=== PATIENT | male | born 1940 | race Caucasian/White ===

== ENCOUNTER → 2019-11-20 13:46 | Outpatient (CLI) | payer MEDICARE, BC, SELFPAY ==
--- NOTE | 2019-11-20 14:08 | US_ITS ---
PROCEDURE: US ABD. AORTA SCREENING CLINICAL INDICATION: ASCVD,ABD DISCOMFORT COMPARISON: No exams were available for comparison No exams were available for comparison FINDINGS: No evidence of abdominal aortic aneurysm. Proximal common iliacs have an unremarkable appearance. IMPRESSION: Negative for abdominal aortic aneurysm Dictated by: Ze Rod MD 11/20/2019 14:43 Electronically signed by Ze Rod MD in [place] 11/20/2019 14:43
== END ==
PROVIDERS: PCP Family Medicine; Visit Provider Family Medicine
DX: R10.9 Unspecified abdominal pain (principal)
CPT/HCPCS: 76705

== ENCOUNTER → 2019-12-31 09:33 | Outpatient (CLI) | payer MEDICARE, BC, SELFPAY ==
--- NOTE | 2019-12-31 09:36 | FL_ITS ---
PROCEDURE: FL UPPER GI W AIR CLINICAL INDICATION: DYSPEPSIA COMPARISON: No exams were available for comparison TECHNIQUE: FLUOROSCOPY TIME : Minute and 2 seconds FINDINGS: The esophagus, stomach, and duodenum have an unremarkable appearance.There is no evidence of hiatal hernia. No ulcer or mass evident. No mucosal abnormalities apparent. There is normal peristalsis. There is a small diverticulum projecting off the medial aspect of the 2nd portion of the duodenum. There are multiple jejunal diverticula of is well. Only the proximal and mid aspect of the jejunum was imaged. IMPRESSION: 1. No evidence of ulcer or mass, no evidence of hiatal hernia. 2. Small duodenal diverticulum 3. Extensive jejunal diverticulosis. The small bowel is not completely imaged. Dedicated small bowel series may provide further evaluation to better determine the degree small bowel diverticulosis Dictated by: Ze Rod MD 12/31/2019 12:56 Electronically signed by Ze Rod MD in [place] 12/31/2019 12:56
== END ==
PROVIDERS: PCP Family Medicine; Visit Provider Family Medicine
DX: R10.13 Epigastric pain (principal)
CPT/HCPCS: 74246

== ENCOUNTER → 2020-01-07 09:11 | Outpatient (CLI) | payer MEDICARE, BC, SELFPAY ==
--- NOTE | 2020-01-07 09:16 | US_ITS ---
PROCEDURE: US ABDOMEN LIMITED CLINICAL INDICATION: DYSPEPSIA COMPARISON: US ABD. AORTA SCREENING from 11/20/2019 FINDINGS: PANCREAS: Unremarkable. No obvious mass or abnormal fluid collection. No ductal dilatation LIVER: No focal liver lesions demonstrated. Homogeneous echogenicity. No intrahepatic biliary ductal dilatation evident. There is appropriate direction of blood flow within a non dilated portal vein RIGHT KIDNEY: Unremarkable. Normal size and echogenicity. No hydronephrosis GALLBLADDER: No gallstones, gallbladder wall thickening, pericholecystic fluid, or biliary dilatation. IMPRESSION: Unremarkable limited abdominal ultrasound as detailed above Dictated by: Ze Rod MD 01/07/2020 13:33 Electronically signed by Ze Rod MD in [place] 01/07/2020 13:33
--- NOTE | 2020-01-07 09:17 | FL_ITS ---
PROCEDURE: FL SMALL BOWEL FOLLOW THROUGH CLINICAL INDICATION: DIVERTICULOSIS COMPARISON: FL UPPER GI W AIR from 12/31/2019 FINDINGS: Briquette Molder exam shows contrast within the right aspect of the colon. There are degenerative changes of the lumbar spine. Small bowel is visualized in its entirety. Numerous diverticula are present within the jejunum. The small bowel diverticulosis appears to be limited to the jejunum as the than a small diverticulum projecting off of the 2nd portion of the duodenum. No intestinal obstruction. No mucosal abnormalities or mass is apparent. Terminal ileum has an unremarkable appearance. IMPRESSION: Diverticulosis of the jejunum and descending duodenum otherwise negative small bowel series Dictated by: Ze Rod MD 01/07/2020 12:52 Electronically signed by Ze Rod MD in [place] 01/07/2020 12:52
== END ==
PROVIDERS: PCP Family Medicine; Visit Provider Family Medicine
DX: R10.13 Epigastric pain (principal); K57.10 Diverticulosis of small intestine without perforation or abscess without bleeding
CPT/HCPCS: 74250; 76705

== ENCOUNTER 2020-05-02 20:25 | Emergency (ER) | payer MEDICARE, BC, SELFPAY ==
[2020-05-02 20:48] VITALS: BP 163/91; PULSE 67; RESP 21; O2SAT 100; BMI 31.4
--- NOTE | 2020-05-02 21:00 | HMH.EDUTC ---
[facility] [place] Clinical Impression: Abdominal pain Qualifiers: Abdominal location: unspecified location Qualified Code(s): R10.9 - Unspecified abdominal pain Disposition: Still a Patient Condition on Discharge: Fair Referrals: Mathew Romo MD [Primary Care Provider] - Medical Decision Making - Medical Records Medical records reviewed: No: I reviewed the patient's medical records. - Gerardo Inquiry Pt receiving controlled substance: No Vital Signs: 05/02/20 20:48 Pulse Rate [Left Brachial] 67 Respiratory Rate 21 Blood Pressure [Left Arm] 163/91 H Blood Pressure Mean [Left Arm] 115 Blood Pressure Source [Left Arm] Automatic Cuff Blood Pressure Position [Left Arm] Sitting 02 Sat by Pulse Oximetry 100 [facility] [place] HPI - General Stated complaint: BP, stomch pain Time Seen by Provider: 05/02/20 20:50 Mode of Arrival: Ambulatory Source of Information: Patient Limitations: No Limitations Description of Symptoms (Recalled from Triage Doc. by RN): PATIENT C/O WORSENING LOWER ABDOMINAL PAIN X 2 DAYS, DENIES ANY DIARRHEA OR VOMITING. STATES HE HAS A HISTORY OF DIVERTICULOSIS THAT PCP HAS BEEN TREATING WITH FIBER AND PROBIOTICS. LAST BM WAS APPROX 2 HOURS APARTMENT MAINTENANCE AND WAS HARD STOOL. PATIENT ALSO VOICES CONCERN ABOUT ELEVATED BLOOD PRESSURE AT HOME. HEENT Symptoms (Recalled from RN notes): No Resp Symptoms (Recalled from RN notes): No Skin Symptoms (Recalled from RN notes): No MS Symptoms (Recalled from RN notes): No Functional Status (Recalled from RN notes): WNL - History of Present Illness Provider Complaint: He states that he has had lower abdominal pain since yesterday. He rates it as a 5 or a 6. It is pretty much continious. Nothing that he can identify makes it better. Having a bowel movement did not help it. His appetite has been decreased all day. He denies any fever or chills. He has felt bad and fatigued all day. He denies any constipation or diarrhea. He denies any difficulty urinating or any dysuria or hematuria. - Related Data Home Medications Medication Instructions Recorded Confirmed simvastatin 40 mg tablet 40 mg PO HS 30 Days #30 tab 08/02/18 05/02/20 Aspirin [Aspirin 81mg chewable 81 mg PO DAILY 05/02/20 05/02/20 tab] Bifidobacterium Infantis [Align] 4 mg PO DAILY 05/02/20 05/02/20 Colchicine [Colcrys 0.6mg tablet] 1 tab PO DAILY 05/02/20 05/02/20 calcium polycarbophiL [FiberCon 625 mg PO DAILY 05/02/20 05/02/20 625mg tablet] Allergies Allergy/AdvReac Type Severity Reaction Status Date / Time No Known Allergies Allergy Verified 08/02/18 10:26 - Worker's Comp Is this a Worker's Comp case?: No H History - Hepatitis A Screen Drug use history?: No High risk sexual behaviors?: No History of sexually transmitted infection?: No Currently employed?: No Childcare worker?: No Do you have indoor plumbing?: Yes Do you have electricity?: Yes Attestation statement:: This patient has been screened for Hepatitis A risk factors. I have reviewed the patient's past medical history: Yes Medical History: Reports:: Atherosclerotic Heart Disease, Coronary Artery Disease, Cerebrovascular Accident, Myocardial Infarction Other Surgeries: Yes: Cardiac Catheterization, Cardiac Surgery, Open Heart Surgery Amputation: No Fractures: No - Social History Smoking Status: Never smoker Alcohol Intake: never Substance Use Type: denies use Occupational Status: other ROS Obtained: Yes All systems reviewed & no additional complaints - Constitutional Constitutional: Reports chills, Denies fever(s), Reports poor appetite, Reports malaise - Eyes Eyes: Denies eye discharge - ENT Ears, Nose, Mouth, and Throat: Denies sore throat - Cardiovascular Cardiovascular: Denies chest pain - Respiratory Respiratory: No chest congestion, No cough - Gastrointestinal Gastrointestingal: Reports: as per HPI Physical Exam - General General appearance: alert, in no apparent distress - Head H
--- NOTE | 2020-05-02 21:00 | PC.NURSE ---
PATIENT SENT TO ER PER KIM CARDONA APRN FOR FURTHER EVALUATION OF ABDOMINAL PAIN. REPORT GIVEN TO Carmen RIVERA RN
[2020-05-02 21:11] VITALS: BP 162/82; PULSE 60; RESP 17; O2SAT 98; BMI 33.5
--- NOTE | 2020-05-02 21:22 | CT_ITS ---
PROCEDURE: CT ABDOMEN PELVIS W CON CLINICAL INDICATION: belly pain Generalized abdominal pain COMPARISON: No exams were available for comparison TECHNIQUE: IV Contrast: 75ML OPTIRAY 350 Oral Contrast None Axial images obtained with sagittal and coronal reformats. All CT scans at the facility use one or more dose reduction, viz: automated exposure control, ma/kV adjustment per patient size (including targeted exams where dose is matched to indication, i.e. head), or iterative reconstruction technique. FINDINGS: LOWER THORAX: There are coronary artery calcifications noted. There has been a prior median sternotomy. ABDOMEN & PELVIS: The liver has an unremarkable appearance. There is a small in the region of gallbladder neck. Spleen, adrenal glands and pancreas have an unremarkable appearance. No renal or ureteral calculi. There is moderate atherosclerotic aortoiliac calcification with evidence of plaque erosion or short segment intramural dissection in the mid abdominal aortic segment age indeterminate. No evidence of retroperitoneal hemorrhage or periaortic inflammatory change. No intestinal obstruction or free air. Duodenal diverticulum is noted. No evidence of appendicitis or diverticulitis. There is a small umbilical hernia which contains. There are mild degenerative changes in the lumbar spine with levoscoliosis and multilevel osteophytosis. IMPRESSION: 1. Cholelithiasis 2. Short segment intramural dissection versus plaque erosion along the leftward wall the mid abdominal aorta age indeterminate. No evidence aortic rupture Dictated by: Ze Rod MD 05/03/2020 05:32 Ze Rod MD in [place] 05/03/2020 05:32
[2020-05-02 21:34] LABS: Chloride 102 mmol/L (98-107); Potassium 4.1 mmoL/L (3.5-5.1); Sodium 137 mmol/L (136-145)
[2020-05-02 21:37] LABS: Alanine Aminotransferase 26 U/L (12-78); Alkaline Phosphatase 50 U/L (38-126); Amylase 86 U/L (30-110); Anion Gap 10.1 mEq/L (5-15); Aspartate Amino Transferase 35 U/L (17-59); Bilirubin,Total 1.1 mg/dl (0.2-1.3); Blood Urea Nitrogen 7 mg/dl (9-20); Calcium 9.1 mg/dl (8.4-10.2); Carbon Dioxide 29 mmol/L (22.0-30.0); Creatinine Clearance Estimated 74 mL/min (50-200); Estimated Glomerular Filt Rate 82 ml/min (>60); GFR (African American) 99 ML/MIN (>60); Glucose 112 mg/dl (74-100); Lipase 215 U/L (23-300)
[2020-05-02 21:38] LABS: Albumin/Globulin Ratio 1.5 (1.1-1.8); Basophils % 0.3 % (0.1-2.0); Eosinophils # 0.1 K/mm3 (0.0-0.4); Eosinophils % 0.7 % (0.1-12.0); Globulin 2.7 g/dL (1.3-3.2); Hematocrit 45.1 % (42.0-52.0); Hemoglobin 15.7 g/dL (14.1-18.0); Lymphocytes # 1.7 K/mm3 (0.7-4.5); Lymphocytes % 21.6 % (10-50); Mean Corpuscular HGB Conc 34.8 g/dL (31.8-35.4); Mean Corpuscular Hemoglobin 30.4 pg (27.0-31.2); Mean Corpuscular Volume 87.1 fl (80-94); Mean Platelet Volume 7.5 fl (7.4-10.4); Monocytes # 0.5 K/mm3 (0.1-1.0); Monocytes % 6.8 % (1.7-9.3); Neutrophils # 5.6 K/mm3 (1.8-7.8); Neutrophils % 70.5 % (37.0-80.0); Platelet Count 166 K/mm3 (142-424); Red Blood Count 5.18 M/mm3 (4.60-6.20); Red Cell Distribution Width 13.2 % (11.5-17.5); Total Protein,Serum 6.7 g/dl (6.3-8.2); White Blood Count 7.9 K/mm3 (4.8-10.8)
[2020-05-02 21:45] LABS: Microscopic, Urine URINE MICROSCOPIC (MICROSCOPIC)
[2020-05-02 21:48] LABS: Appearance,Urine CLEAR (Clear); Bilirubin,Urine Negative (Negative); Blood, Urine Negative (Negative); Color,Urine YELLOW (Yellow); Glucose,Urine (UA) Negative (Negative); Ketones,Urine Negative (Negative); Leukocyte Esterase,Urine Negative (Negative); Nitrate,Urine Negative (Negative); PH,Urine 6.5 (5.0-8.5); Protein,Urine Negative (Negative); Specific Gravity, Urine <= 1.005 (1.005-1.030); Urobilinogen,Urine 0.2 EU/dl (0.2)
[2020-05-02 21:58] LABS: Bacteria,Urine Trace /lpf; WBC,Urine Occasional #/hpf (0-3)
[2020-05-02 22:00] VITALS: BP 155/66; PULSE 61; RESP 18; O2SAT 99
[2020-05-02 22:50] VITALS: BP 148/68; PULSE 63; RESP 17; O2SAT 99
--- NOTE | 2020-05-02 23:20 | HMH.EDNVD ---
ED Disposition Clinical Impression: Abdominal pain Qualifiers: Abdominal location: unspecified location Qualified Code(s): R10.9 - Unspecified abdominal pain Disposition: Home, Self-Care Condition on Discharge: Good Instructions: DI for Acute Abdomen Additional Instructions: call pcp in am for follow up Referrals: Mathew Romo MD [Primary Care Provider] - - Critical Care Critical Care Time: No Attestation: On 05/02/20, the high probability of a clinically significant, sudden or life threatening deterioration of the following system(s) required my full and direct attention, intervention and personal management. The time I documented below is in addition to time spent performing reported procedures but includes the following listed in this critical care notation. Medical Decision Making - Medical Records Medical records reviewed: Yes: I reviewed the patient's medical records. - Gerardo Inquiry Pt receiving controlled substance: No Vital Signs: 05/02/20 20:48 05/02/20 21:11 Pulse Rate [Left Brachial] 67 60 Respiratory Rate 21 17 Blood Pressure [Left Arm] 163/91 H 162/82 H Blood Pressure Mean [Left Arm] 115 108 Blood Pressure Source [Left Arm] Automatic Cuff Automatic Cuff Blood Pressure Position [Left Arm] Sitting Sitting 02 Sat by Pulse Oximetry 100 98 Oxygen Delivery Method Room Air - Lab Data Lab results reviewed: Yes: I reviewed the patient's lab results. Lab Results 05/02/20 21:10: Urine Color Yellow, Urine Appearance Clear, Urine pH 6.5, Ur Specific [place] <= 1.005, Urine Protein Negative, Urine Glucose (UA) Negative, Urine Ketones Negative, Urine Blood Negative, Urine Nitrate Negative, Urine Bilirubin Negative, Urine Urobilinogen 0.2, Ur Leukocyte Esterase Negative, Urine WBC Occasional, Urine Bacteria Trace 05/02/20 21:10: Lipase 215 05/02/20 21:10: WBC 7.9, RBC 5.18, Hgb 15.7, Hct 45.1, MCV 87.1, MCH 30.4, MCHC 34.8, RDW 13.2, Plt Count 166, MPV 7.5, Neut % (Auto) 70.5, Lymph % (Auto) 21.6, [place] % (Auto) 6.8, Eos % (Auto) 0.7, Baso % (Auto) 0.3, Neut # (Auto) 5.6, Lymph # (Auto) 1.7, Davie # (Auto) 0.5, Eos # (Auto) 0.1, Baso # (Auto) 0.0 05/02/20 21:10: Sodium 137, Potassium 4.1, Chloride 102, Carbon Dioxide 29, Anion Gap 10.1, BUN 7 L, Creatinine 0.90, Estimated Creat Clear 74, Estimated GFR 82, Est GFR ( Amer) 99, Glucose 112 H, Calcium 9.1, Total Bilirubin 1.1, AST 35, ALT 26, Alkaline Phosphatase 50, Total Protein 6.7, Albumin 4.0, Globulin 2.7, Albumin/Globulin Ratio 1.5, Amylase 86 Result diagrams: 05/02/20 21:10 05/02/20 21:10 Orders (Tests/Meds): ED MEDICATIONS Generic Name Dose Route Start Last Admin Trade Name Freq PRN Reason Stop Dose Admin Sodium Chloride 1,000 mls @ 999 mls/hr 05/02/20 21:30 05/02/20 22:12 Sod Chlor 0.9% 1000ml Bag IV 05/02/20 22:30 999 mls/hr .Q1H1M LADI Administration Sodium Chloride 8 ml 05/02/20 22:19 Sodium Chloride 0.9% 10ml Vial IV 06/01/20 22:18 NEEDED PRN dilute pepcid Discontinued Medications Generic Name Dose Route Start Last Admin Trade Name Freq PRN Reason Stop Dose Admin Famotidine 20 mg 05/02/20 22:19 05/02/20 22:20 Pepcid 20mg/2ml Vial IV 05/02/20 22:20 20 mg ONCE ONE Administration Ioversol 75 ml 05/02/20 22:16 05/02/20 22:17 Rad-Optiray 350 100ml Vial IV 05/02/20 22:17 75 ml ONCE ONE Administration Protocol Ketorolac Tromethamine 30 mg 05/02/20 22:09 Toradol 30mg/Ml Vial IV 05/02/20 22:10 ONCE ONE Metoclopramide HCl 10 mg 05/02/20 22:19 05/02/20 22:20 Reglan 10mg/2ml Vial IVP 05/02/20 22:20 10 mg ONCE ONE Administration Ondansetron HCl 4 mg 05/02/20 22:18 05/02/20 22:20 Zofran 4mg/2ml Vial IV 05/02/20 22:19 4 mg ONCE ONE Administration Sodium Chloride 10 ml 05/02/20 22:16 05/02/20 22:17 Rad-Saline Flush 10ml Syringe IV 05/02/20 22:17 10 ml ONCE ONE Administration ORDERS Category Date Time Status CT
[2020-05-02 23:25] VITALS: BP 145/60; PULSE 58; RESP 18; TEMP 36.8; O2SAT 98
== END 2020-05-02 23:31 | disposition home or self-care (01) ==
LOC: UTC 20:35 → ER 21:05
PROVIDERS: Emergency Provider Emergency Medicine; PCP Family Medicine
DX: R10.30 Lower abdominal pain, unspecified (principal); K57.90 Diverticulosis of intestine, part unspecified, without perforation or abscess without bleeding; E78.5 Hyperlipidemia, unspecified; I25.10 Atherosclerotic heart disease of native coronary artery without angina pectoris; I25.2 Old myocardial infarction; Z79.899 Other long term (current) drug therapy
CPT/HCPCS: 74177; 80053; 81001; 82150; 83690; 85025; 96365; 96375; 99283; J2405; Q9967

== ENCOUNTER → 2020-05-10 10:20 | Outpatient (CLI) | payer MEDICARE, BC, SELFPAY ==
--- NOTE | 2020-05-10 10:23 | CT_ITS ---
Procedure: CT ANGIO ABDOMEN CLINICAL HISTORY: DISSECTION OF ABN AORTA Mid to lower abdominal pain with nausea ?DISSECTION OF ABD AORTA 100ML OPTIRAY 350, 40ML SALINE PRIOR A/P, 05/02/20 COMPARISON: CT CT ABDOMEN PELVIS W CON from 05/02/2020 TECHNIQUE: IV Contrast: 100ml Optiray 350 Axial images obtained with sagittal and coronal reformats. All CT scans at the facility use one or more dose reduction, viz: automated exposure control, ma/kV adjustment per patient size (including targeted exams where dose is matched to indication, i.e. head), or iterative reconstruction technique. FINDINGS: Atheromatous changes involve the abdominal aorta and its branches. As noted previously there is a small area plaque ulceration versus a contained short segment intramural dissection within the infrarenal abdominal aorta. This begins 5 cm below the level of the main renal arteries. There are 2 left renal arteries with the dissection beginning 3.6 cm below the lowest renal artery on the left. Mural thrombus is present at this region. There is mild dilatation of the abdominal aorta at this region at 2.1 cm transverse and 2 cm AP. There is no evidence of retroperitoneal hemorrhage. Atheromatous changes are present with calcification at the ostium of the celiac and SMA. The THU is patent. Calcification also noted involving the proximal aspect of the right renal artery with less than 50 percent stenosis. There is a small umbilical hernia containing fat. There are degenerative changes of the thoracic and lumbar spine IMPRESSION: 1. Overall no significant change in the mild dilatation of the infrarenal abdominal aorta with a moderate amount of mural thrombus with small area of plaque ulceration within the mural thrombus versus a contained dissection. Favor the former.. No evidence of retroperitoneal hemorrhage and no significant change from 05/02/2020 2. Other nonacute findings as described above Dictated by: Ze Rod MD 05/11/2020 12:36 Ze Rod MD in [place] 05/11/2020 12:36
== END ==
PROVIDERS: PCP Family Medicine; Visit Provider Family Medicine
DX: I71.02 Dissection of abdominal aorta (principal)
CPT/HCPCS: 74175; Q9967

== ENCOUNTER → 2020-08-02 08:08 | Outpatient (CLI) | payer MEDICARE, BC, SELFPAY ==
--- NOTE | 2020-08-02 08:27 | CT_ITS ---
Procedure: CT ANGIO ABDOMEN PELVIS CLINICAL HISTORY: AORTIC DISSECTION ABD,AORTIC THROMBUS Follow-up surgery/aortoiliac stent graft placement. COMPARISON: CT CT ANGIO ABDOMEN from 05/10/2020 TECHNIQUE: IV Contrast: 100ml Isovue 370 Axial images obtained with sagittal and coronal reformats. All CT scans at the facility use one or more dose reduction, viz: automated exposure control, ma/kV adjustment per patient size (including targeted exams where dose is matched to indication, i.e. head), or iterative reconstruction technique. FINDINGS: There is been interval aortoiliac stent graft placement. The saccular aneurysm the abdominal aorta is no longer apparent. The aortic stent begins at the level of the renal arteries and extends to the distal aspect of the common iliac arteries. The aortic and iliac artery lumens are patent. There is no evidence stent graft leak. No evidence of retroperitoneal hemorrhage. There is calcific plaque at the ostium of the celiac and superior mesenteric artery with less than 50 percent stenosis. No acute abdominal or pelvic findings are evident. There are degenerative changes in the spine and hips. IMPRESSION: Status post aortoiliac stent graft placement. No evidence of endo graft leak or other acute anomaly. Dictated by: Ze Rod MD 08/02/2020 18:34 Ze Rod MD in [place] 08/02/2020 18:34
== END ==
PROVIDERS: PCP Family Medicine; Visit Provider Surgery
DX: I71.4 Abdominal aortic aneurysm, without rupture (principal)
CPT/HCPCS: 74174; Q9967

== ENCOUNTER → 2021-03-22 17:24 | Outpatient (CLI) | payer MEDICARE, BC, SELFPAY ==
--- NOTE | 2021-03-22 17:41 | XR_ITS ---
PROCEDURE INFORMATION: Exam: XR Right Ankle Exam date and time: 03/22/2021 5:41 PM Age: 81 years old Clinical indication: Ankle; Right; Patient HX: Sprain pain and swelling lateral TECHNIQUE: Imaging protocol: XR Right ankle. Views: 3 or more views. COMPARISON: No relevant prior studies available. FINDINGS: Bones/joints: Incidental note of calcaneal spurs. There is a subtle calcification projecting inferior to the cuboid. This could be an age indeterminate avulsion injury and clinical correlation is recommended for focal tenderness. A subtle linear lucency projecting over the fibula on one view is noted. This is favored to be projectional versus a nondisplaced fracture. Degenerative changes seen at the ankle mortise. Some fragments of calcium are seen that appear to be chronic. Soft tissues: Mild swelling over the lateral malleolus. Two surgical clips are seen in the medial soft tissues. IMPRESSION: A subtle linear lucency projecting over the fibula on one view is noted. This is favored to be projectional versus a nondisplaced fracture. Follow-up in 7-[address] now to look for occult fracture is recommended.
== END ==
PROVIDERS: PCP Family Medicine; Visit Provider Family Medicine
DX: S93.431A Sprain of tibiofibular ligament of right ankle, initial encounter (principal); M79.661 Pain in right lower leg
CPT/HCPCS: 73610

== ENCOUNTER → 2021-03-23 14:57 | Outpatient (CLI) | payer MEDICARE, BC, SELFPAY ==
--- NOTE | 2021-03-23 15:01 | CA_ITS ---
APPROVED REPORT Right Lower Extremity Venous Study for DVT. Vessel Slagman: RAJ DelacruzT Indications Lower Extremity Pain: Right Lower Extremity Edema: Right PT TWISTED RT ANKLE SEVERAL DAYS AGO NOW HAS RT CALF SWELLING Risk Factors Trauma Vein Imaging CFV (R): compressive, spontaneous, phasic, augmentation FEM (R): compressive, spontaneous, phasic, augmentation POP (R): compressive, spontaneous, phasic, augmentation PTV (R): Compressible GSV (R): Compressible Peroneals (R):Compressible GAS (R): Compressible Findings Study suggests no evidence of DVT or SVT of the right lower extremity. 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 Conclusion Study suggests no evidence of DVT or SVT of the right lower extremity. 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 Critical Notification Physician Notified Date: 03/23/2021 Time: 15:26 Physician Name: Maddi Romo's office Electronically signed by : Ze Rod MD 03/23/2021 16:36:59
== END ==
PROVIDERS: PCP Family Medicine; Visit Provider Family Medicine
DX: M79.661 Pain in right lower leg (principal)
CPT/HCPCS: 93971

== ENCOUNTER → 2021-09-18 10:39 | Outpatient (CLI) | payer MEDICARE, BC, SELFPAY | PROVIDERS: PCP Psychiatry & Neurology Sleep Medicine; Visit Provider Nurse Practitioner | DX: U07.1 COVID-19 (principal) | CPT/HCPCS: C9803; U0003; U0005 ==

== ENCOUNTER → 2021-11-08 11:56 | Outpatient (CLI) | payer MEDICARE, BC, SELFPAY ==
--- NOTE | 2021-11-08 12:03 | XR_ITS ---
FINAL REPORT CLINICAL HISTORY: .fall 2 weeks ago, hx of open heart FINDINGS: Three views of the right ribs were obtained. There is a right 9th lateral rib fracture. The visualized lungs are clear. No pneumothorax is identified. IMPRESSION: Right 9th lateral rib fracture without pneumothorax. Reviewed, Interpreted and Dictated by Trey Granados III, MD Transcribed by Lucio Moreau Authenticated by Trey Granados III, MD on 11/08/2021 01:41:53 PM [facility]
--- NOTE | 2021-11-08 12:03 | XR_ITS ---
FINAL REPORT CLINICAL HISTORY: CONTUSION OF RIGHT CHEST WALL, INITIAL ENCOUNTER fall 2 weeks ago, hx of open heart COMPARISON: August 02, 2019 FINDINGS: Two views of the chest were obtained. There has been median sternotomy. The heart size and pulmonary vascularity are within normal limits. The mediastinum is normal. No acute pulmonary abnormality is identified. There is no pneumothorax. IMPRESSION: No active cardiopulmonary disease. Reviewed, Interpreted and Dictated by Trey Granados III, MD Transcribed by Lucio Moreau Authenticated by Trey Granados III, MD on 11/08/2021 01:41:41 PM [facility]
== END ==
PROVIDERS: PCP Family Medicine; Visit Provider Family Medicine
DX: S20.211A Contusion of right front wall of thorax, initial encounter (principal)
CPT/HCPCS: 71046; 71100

== ENCOUNTER → 2022-04-11 10:05 | Outpatient (CLI) | payer MEDICARE, BC, SELFPAY ==
--- NOTE | 2022-04-11 10:12 | ECG_ITS ---
APPROVED REPORT Exam: Resting ECG HR:65 bpm ECG Measurements Heart Rate 65 AXES IN 175 P 46 QRSd 113 QRS 3 QT 396 T 78 QTc 407 Conclusion SINUS RHYTHM POSSIBLE LATERAL MYOCARDIAL INFARCTION , OF INDETERMINATE AGE [30 ms Q WAVE IN I/aVL/V5/V6] ABNORMAL ECG UNCONFIRMED REPORT Electronically signed by : Mau Contreras MD 04/11/2022 21:01:38
== END ==
PROVIDERS: PCP Family Medicine; Visit Provider Family Medicine
DX: I49.8 Other specified cardiac arrhythmias (principal)
CPT/HCPCS: 93005

== ENCOUNTER 2022-05-12 10:42 | Emergency (ER) | payer MEDICARE, BC, SELFPAY ==
[2022-05-12 11:00] VITALS: BP 141/72; PULSE 73; RESP 18; TEMP 36.8; O2SAT 98; BMI 24.8
[2022-05-12 11:52] VITALS: BP 141/72; PULSE 73; RESP 18; TEMP 36.8; O2SAT 98
--- NOTE | 2022-05-12 12:17 | EXP.UTC ---
Discharge Plan Disposition Patient Disposition: Home, Self-Care Condition: Good Prescriptions Prescriptions: No Action simvastatin 40 mg tablet 40 mg PO HS 30 Days Qty: 30 aspirin 81 MG tablet,chewable 81 mg PO DAILY calcium polycarbophil 625 MG tablet 625 mg PO DAILY colchicine 0.6 mg tablet 1 tab PO DAILY Label Comments: TK 1 T PO QD Bifidobacterium infantis 4 MG capsule 4 mg PO DAILY Referrals Follow up/Referrals: Mathew Romo MD [Primary Care Provider] - See instructions Activity Restrictions/Add. Instructions Additional Instructions/Restrictions: Keep area clean and dry Clean with antibacterial soap and water and pat dry Removal in 7 days Follow up immediately if any signs of infection, drainage changes in vision, headache etc or any life threatening symptoms Clinical Impressions Clinical Impression: Laceration Instructions Patient Instructions: DI for Laceration Repair, DI for Laceration Repair -- Simple Discharge ED Provider: Oanh Patel [facility] [place] General Stated complaint: AO 05/12@home@1000 lac on head Mode of Arrival: Ambulatory Source of Information: Patient Limitations: No Limitations Time Seen by Provider: 05/12/22 11:50 Description of Symptoms (Recalled from Triage Doc. by RN): PATIENT C/O LACERATION TO TOP OF HEAD AFTER HITTING IT ON A COCO ON THE BASEMENT CEILING. NEEDS TDAP HEENT Symptoms (Recalled from RN notes): No Resp Symptoms (Recalled from RN notes): No Skin Symptoms (Recalled from RN notes): Yes MS Symptoms (Recalled from RN notes): No Functional Status (Recalled from RN notes): WNL History of Present Illness Provider Complaint: Patient states that he was walking under the floor when a floor bracket was hanging down and cut the top of his head States that family looked at it and thought he may need sutures so they brought him in Denies LOC Related Data Home Medications Medication Instructions Recorded Confirmed simvastatin 40 mg tablet 40 mg PO HS Cholesterol 30 days 08/02/18 05/02/20 #30 tabs Bifidobacterium infantis 4 mg 4 mg PO DAILY DIVERTICULOSIS 05/02/20 05/02/20 capsule aspirin 81 mg chewable tablet 81 mg PO DAILY HEART 05/02/20 05/02/20 calcium polycarbophil 625 mg tablet 625 mg PO DAILY DIVERTICULOSIS 05/02/20 05/02/20 colchicine 0.6 mg tablet 1 tab PO DAILY ? 05/02/20 05/02/20 Allergies Allergy/AdvReac Type Severity Reaction Status Date / Time No Known Allergies Allergy Verified 05/02/20 21:24 Worker's Comp Is this a Worker's Comp case?: No PFSH PFSH Medical History (Updated 05/12/22 @ 12:23 by Oanh Patel APRN) Gout Hyperlipidemia Hypertension Social History (Updated 05/12/22 @ 11:18 by Sarai Vargas RN) Smoking Status: Never smoker alcohol intake: never substance use type: denies use current occupational status: other Travel in the last 8 weeks: None ROS Obtained: Yes All systems reviewed & no additional complaints except as documented and Yes Systems reviewed as appropriate & no additional complaints except as documented Cardiovascular Cardiovascular: Reports system reviewed and no additional complaints, except as documented and Reports as per HPI Respiratory Respiratory: Reports system reviewed and no additional complaints, except as documented and Reports as per HPI Musculoskeletal Musculoskeletal: Reports system reviewed and no additional complaints, except as documented Integumentary/Breasts Skin/Breast: Reports system reviewed and no additional complaints, except as documented and Reports other (laceration to top of head denies loc denies headache) Physical Exam General General appearance: alert and in no apparent distress Head Head exam: other Expanded Head Exam Head image: 1. flap like laceration noted no bruising no swelling Eye Eye exam: Present normal appearance and PERRL Respiratory Respiratory exam: Present normal lung sounds bilaterally and respi
== END 2022-05-12 12:29 | disposition home or self-care (01) ==
PROVIDERS: Emergency Provider Nurse Practitioner; PCP Family Medicine
DX: S01.01XA Laceration without foreign body of scalp, initial encounter (principal); Y93.9 Activity, unspecified
CPT/HCPCS: 12002; 90471; 90715; 99213; G0463

== ENCOUNTER 2022-05-19 09:00 | Emergency (ER) | payer MEDICARE, BC, SELFPAY ==
[2022-05-19 09:17] VITALS: BP 124/73; PULSE 64; RESP 18; TEMP 36.8; O2SAT 99; BMI 29.7
[2022-05-19 09:19] VITALS: BP 124/73; PULSE 64; RESP 18; TEMP 36.8
== END 2022-05-19 09:20 | disposition home or self-care (01) ==
PROVIDERS: Emergency Provider Nurse Practitioner Family; PCP Family Medicine
DX: Z48.02 Encounter for removal of sutures (principal)

== ENCOUNTER → 2022-05-19 09:05 | Outpatient (CLI) | payer MEDICARE, BC, SELFPAY | PROVIDERS: PCP Family Medicine; Visit Provider Nurse Practitioner Family | DX: Z48.02 Encounter for removal of sutures (principal) ==

== ENCOUNTER 2024-03-10 09:35 | Outpatient (CLI) | payer MEDICARE, BC, SELFPAY ==
--- NOTE | 2024-03-10 09:39 | CA_ITS ---
FINAL REPORT TECHNIQUE: Color Doppler, duplex Doppler and coronel scale sonography of the bilateral neck arterial vasculature was performed. Velocities were measured in the carotid arteries. Stenosis evaluation based on the validated velocity criteria. CLINICAL HISTORY: HTN, HLD, Nora palsy FINDINGS: The peak systolic velocity of the right common carotid artery is 70 cm/s. The peak systolic velocity of the right internal carotid artery is 135 cm/s and end diastolic velocity 43 cm/s. The ICA/CCA ratio is 1.9. A moderate amount of plaque is present. The right external carotid artery is patent. The right vertebral artery is patent with antegrade flow. The peak systolic velocity of the left common carotid artery is 87 cm/s. The peak systolic velocity of the left internal carotid artery is 85 cm/s and end diastolic velocity 31 cm/s. The ICA/CCA ratio is 1.2. A small amount of plaque is present. The left external carotid artery is patent.The left vertebral artery is patent with antegrade flow. IMPRESSION: Less than 50% bilateral carotid stenoses. Bilateral patent vertebral arteries with antegrade flow. If indicated, CTA or MRA could further evaluate. Reviewed, Interpreted and Dictated by Trey Granados III, MD Transcribed by Anum Sanchez Authenticated and . [facility]
== END 2024-03-10 23:59 | disposition home or self-care (01) ==
LOC: RT 09:36
PROVIDERS: PCP Family Medicine; Visit Provider Family Medicine
DX: I65.23 Occlusion and stenosis of bilateral carotid arteries (principal)
CPT/HCPCS: 93880

== ENCOUNTER 2024-10-08 15:08 | Emergency (ER) | payer MEDICARE, BC, SELFPAY ==
[2024-10-08 15:34] VITALS: BP 146/77; PULSE 91; RESP 18; TEMP 36.8; O2SAT 97; BMI 32.3
--- NOTE | 2024-10-08 15:40 | EXP.UTC ---
Discharge Plan Disposition Patient Disposition: Home, Self-Care Condition: Good Prescriptions Prescriptions: New prednisone 20 mg tablet 20 mg PO BID 3 Days Qty: 6 0RF benzonatate 100 mg capsule 100 mg PO TIDP PRN (Reason: Cough) Qty: 30 0RF cefdinir 300 mg capsule 300 mg PO BID Qty: 20 0RF No Action simvastatin 40 mg tablet 40 mg PO HS 30 Days Qty: 30 aspirin 81 MG tablet,chewable 81 mg PO DAILY calcium polycarbophil 625 MG tablet 625 mg PO DAILY colchicine 0.6 mg tablet 1 tab PO DAILY Patient Comments: TK 1 T PO QD Bifidobacterium infantis 4 MG capsule 4 mg PO DAILY Referrals Follow up/Referrals: Mathew Romo MD [Primary Care Provider] - See instructions Activity Restrictions/Add. Instructions Additional Instructions/Restrictions: Drink plenty of fluids. Take tylenol or ibuprofen for pain or fever. Take the medications as directed. Follow up with your regular doctor. GO TO THE ER FOR ANY WORSENING SYMPTOMS Clinical Impressions Clinical Impression: Sinusitis Instructions Patient Instructions: Sinusitis, DI for Sinusitis, Prednisone, Cefdinir Print Language Print Language: Mohawk Discharge ED Provider: José Manuel Power [facility] [place] General Stated complaint: Cough,runny nose,sneezing Mode of Arrival: Ambulatory Source of Information: Patient Time Seen by Provider: 10/08/24 15:37 Description of Symptoms (Recalled from Triage Doc. by RN): COUGHING, RUNNY NOSE HEENT Symptoms (Recalled from RN notes): No Resp Symptoms (Recalled from RN notes): Yes Skin Symptoms (Recalled from RN notes): No MS Symptoms (Recalled from RN notes): No Functional Status (Recalled from RN notes): WNL Related Data Home Medications ?Medication ?Instructions ?Recorded ?Confirmed simvastatin 40 mg tablet 40 mg PO HS Cholesterol 30 days 08/02/18 07/12/22 #30 tabs Bifidobacterium infantis 4 mg 4 mg PO DAILY DIVERTICULOSIS 05/02/20 07/12/22 capsule aspirin 81 mg chewable tablet 81 mg PO DAILY HEART 05/02/20 07/12/22 calcium polycarbophil 625 mg tablet 625 mg PO DAILY DIVERTICULOSIS 05/02/20 07/12/22 colchicine 0.6 mg tablet 1 tab PO DAILY ? 05/02/20 07/12/22 Previous Rx's ?Medication ?Instructions ?Recorded benzonatate 100 mg capsule 100 mg PO TIDP PRN Cough #30 caps 10/08/24 cefdinir 300 mg capsule 300 mg PO BID #20 caps 10/08/24 prednisone 20 mg tablet 20 mg PO BID 3 days #6 tabs 10/08/24 Allergies Allergy/AdvReac Type Severity Reaction Status Date / Time No Known Allergies Allergy Verified 07/12/22 12:53 Worker's Comp Is this a Worker's Comp case?: No [facility] Disclaimer: The information contained in this section may have been updated after the patient was seen, as this information can be updated by other users. Medical History (Updated 10/08/24 @ 16:03 by José Manuel Power APRN) History of cataract History of stroke History of heart attack Gout Hyperlipidemia Hypertension Surgical History (Updated 07/12/22 @ 12:51 by Kala Montalvo RN) History of open heart surgery Family History Other No significant family history Social History (Updated 07/12/22 @ 12:53 by Kala Montalvo RN) Smoking Status: Never smoker alcohol intake: never substance use type: denies use current occupational status: other Travel in the last 8 weeks: None Have you lived/traveled outside [place] in past 30 days?: No Contact w/someone who lives/traveled outside [place] past 30 days?: No Exposure to someone with infectious disease in past 14 days?: No Do you have a fever (greater than 100.4 F or 38 C)?: No Have you tested positive for COVID-19: No Exposed to someone with COVID-19 in past 14 days?: No Do you have a sore throat?: No Do you have a cough?: Yes Do you have any weakness?: No Do you have any diarrhea?: No Are you experiencing any unusual bleeding?: No Do you have any muscle aches/pain?: No Do you have any abdominal pain?: No Are you experiencing loss of taste or smell?: No ROS Obtained: Yes All systems reviewed & no additional complaints except as documented Constitutional Constitutional: Reports poor appetite Eyes Eyes: Reports system reviewed and no additional complaints, except as documented ENT Ears, Nose, Mouth, and Throat: Reports as per HPI Cardiovascular Cardiovascular: Reports system reviewed and no additional complaints, except as documented and Denies chest pain Respiratory Respiratory: Denies shortness of breath, Denies chest congestion, Reports cough, Denies stridor and Denies wheezing Gastrointestinal Gastrointestingal: Reports system reviewed and no additional complaints, except as documented; Denies abdominal pain, diarrhea or vomiting Musculoskeletal Musculoskeletal: Reports system reviewed and no additional complaints, except as documented and Denies arthralgias Integumentary/Breasts Skin/Breast: Reports system reviewed and no additional complaints, except as documented and Denies rash Neurologic Neurologic: Denies paresthesias Allergic/Immunologic Allergic/Immunologic: Denies wheezing Physical Exam General General appearance: alert and in no apparent distress Eye Eye exam: Present normal appearance, PERRL and EOMI ENT ENT exam: Present mucous membranes moist and normal external ear exam Expanded ENT Exam External ear exam: Present normal external inspection TM/Canal exam: Bilateral TM: erythema and bulging Nose exam: Absent sinus tenderness Nasal speculum exam: Bilateral: normal Mouth exam: Present normal external inspection; Absent drooling Teeth exam: Present normal inspection Throat exam: Present tonsillar erythema and tonsillomegaly Neck Neck exam: Present normal inspection, full ROM and trachea midline; Absent tenderness, lymphadenopathy or thyromegaly Chest Chest inspection: Present normal inspection and symmetric chest wall rise; Absent tenderness or rash Respiratory Respiratory exam: Present normal lung sounds bilaterally; Absent respiratory distress, wheezes, stridor or accessory muscle use Cardiovascular Cardiovascular exam: Present regular rate, normal rhythm and normal heart sounds Abdominal Exam Abdominal exam: Present soft; Absent distention, tenderness, guarding, rebound or rigidity Extremities Exam Extremities exam: Present normal inspection, full ROM and normal capillary refill; Absent tenderness or calf tenderness Back Exam Back exam: Present normal inspection and full ROM; Absent tenderness Neurological Exam Neurological exam: Present alert and oriented X3 Psychiatric Psychiatric exam: Present normal affect and normal mood Skin Skin exam: Present warm, dry, intact and normal color Lymphatic Lymphatic Findings: no adenopathy Medical Decision Making Medical Records Medical records reviewed: No I reviewed the patient's medical records. Screening: Per USPSTF and CDC recommendations, given the prevalence of disease in our region, it is our hospital?s policy to screen for HIV and viral Hepatitis for all patients aged 18 and over and those with ongoing risk factors. Gerardo Inquiry Pt receiving controlled substance: No Vital Signs: 10/08/24 15:34 Temperature 98.3 F Temperature Source Oral Pulse Rate [Left Radial] 91 H Respiratory Rate 18 Blood Pressure [Left Arm] 146/77 H Blood Pressure Mean [Left Arm] 100 02 Sat by Pulse Oximetry 97
[2024-10-08 16:04] VITALS: BP 146/77; PULSE 91; RESP 18; TEMP 36.8
== END 2024-10-08 16:11 | disposition home or self-care (01) ==
PROVIDERS: Emergency Provider Nurse Practitioner Family; PCP Family Medicine
DX: J01.90 Acute sinusitis, unspecified (principal)
CPT/HCPCS: 99212; G0381